=== PATIENT | female | born 1975 | race Caucasian/White ===

== ENCOUNTER 2017-07-26 02:08 | Emergency (ER) | payer SELFPAY ==
[~2017-07-26] VITALS: Ht 172.7 cm; Wt 54.0 kg
[2017-07-26 02:12] VITALS: BP 115/59; PULSE 91; RESP 16; TEMP 98.6; O2SAT 96
--- NOTE | 2017-07-26 02:42 | PD ---
HPI . overdose /intox Chief Complaint: OD/ Ingestion Time Seen by Provider: 02:26 Travel History International Travel<30 days: No Contact w/Intl Traveler<30days: No Traveled to known affect area: No History of Present Illness HPI pt was drink etoh all day and then took ambien and antidepressnat and made vague SI comments police tyson acted her and EVAC called [facility] Past Medical History Cancer: Yes (BREAST ) ?: Unknown Past Surgical History Section: Yes Mastectomy: Yes (GABRIELA. ) Social History Alcohol Use: Yes Tobacco Use: No Substance Use: No Allergies-Medications (Allergen,Severity, Reaction): Coded Allergies: No Known Allergies (Unverified , 07/26/17) Reported Meds & Prescriptions Reported Meds & Active Scripts Active Active Prescriptions or Reported Medications Unobtainable Review of Systems ROS Limitations: Intoxication Physical Exam Narrative GENERAL: somnolent but rousable SKIN: Warm and dry. HEAD: Atraumatic. Normocephalic. EYES: Pupils equal and round. No scleral icterus. No injection or drainage. ENT: No nasal bleeding or discharge. Mucous membranes pink and moist. NECK: Trachea midline. No JVD. CARDIOVASCULAR: Regular rate and rhythm. RESPIRATORY: No accessory muscle use. Clear to auscultation. Breath sounds equal bilaterally. GASTROINTESTINAL: Abdomen soft, non-tender, nondistended. Hepatic and splenic margins not palpable. MUSCULOSKELETAL: Extremities without clubbing, cyanosis, or edema. No obvious deformities. NEUROLOGICAL: Awake and alert. No obvious cranial nerve deficits. Motor grossly within normal limits. Five out of 5 muscle strength in the arms and legs. Normal speech. PSYCHIATRIC: sleepy but awakes on voice command Data Data Last Documented VS Vital Signs Date Time Temp Pulse Resp B/P (MAP) Pulse Ox O2 Delivery O2 Flow Rate FiO2 07/27/17 08:24 07/27/17 02:42 98.9 69 16 98 Room Air Orders Orders Complete Blood Count With Diff (07/26/17 02:43) Comprehensive Metabolic Panel (07/26/17 02:43) Drug Screen, Random Urine (07/26/17 02:43) Alcohol (Ethanol) (07/26/17 02:43) Salicylates (Aspirin) (07/26/17 02:43) Tylenol (Acetaminophen) (07/26/17 02:43) Psych Screen (07/26/17 04:22) Diet Regular Basic (07/26/17 Breakfast) Diet Regular Basic (07/26/17 Lunch) Diet Regular Basic (07/26/17 Dinner) Ed Discharge Order (07/27/17 08:16) Labs Laboratory Tests Test 07/26/17 02:50 07/26/17 18:52 White Blood Count 6.4 TH/MM3 Red Blood Count 3.69 MIL/MM3 Hemoglobin 11.6 GM/DL Hematocrit 34.4 % Mean Corpuscular Volume 93.1 FL Mean Corpuscular Hemoglobin 31.5 PG Mean Corpuscular Hemoglobin Concent 33.9 % Red Cell Distribution Width 13.9 % Platelet Count 210 TH/MM3 Mean Platelet Volume 9.5 FL Neutrophils (%) (Auto) 54.6 % Lymphocytes (%) (Auto) 32.6 % Monocytes (%) (Auto) 9.4 % Eosinophils (%) (Auto) 2.5 % Basophils (%) (Auto) 0.9 % Neutrophils # (Auto) 3.5 TH/MM3 Lymphocytes # (Auto) 2.1 TH/MM3 Monocytes # (Auto) 0.6 TH/MM3 Eosinophils # (Auto) 0.2 TH/MM3 Basophils # (Auto) 0.1 TH/MM3 CBC Comment DIFF FINAL Differential Comment Blood Urea Nitrogen 15 MG/DL Creatinine 0.66 MG/DL Random Glucose 91 MG/DL Total Protein 6.7 GM/DL Albumin 3.3 GM/DL Calcium Level 7.7 MG/DL Alkaline Phosphatase 79 U/L Aspartate Amino Transf (AST/SGOT) 21 U/L Alanine Aminotransferase (ALT/SGPT) 19 U/L Total Bilirubin LESS THAN 0.1 MG/DL Sodium Level 145 MEQ/L Potassium Level 3.7 MEQ/L Chloride Level 111 MEQ/L Carbon Dioxide Level 23.3 MEQ/L Anion Gap 11 MEQ/L Estimat Glomerular Filtration Rate 97 ML/MIN Salicylates Level LESS THAN 1.7 MG/DL Acetaminophen Level LESS THAN 2.0 MCG/ML Ethyl Alcohol Level 154 MG/DL Urine Opiates Screen NEG Urine Barbiturates Screen NEG Urine Amphetamines Screen NEG Urine Benzodiazepines Screen POS Urine Cocaine Screen NEG Urine Cannabinoids Screen NEG MDM Medical Decision Making Medical Screen Exam Complete: Yes Emergency Medical Condition: Yes Differential Diagnosis etoh and sleeping aid overdose accidental vs intentional vs manipulative OD vs passive SI vs intention Suicidal gesture vs attempt Narrative Course pt observed for over 6 hrs then medically cleared for psych evaluation of etoh overdose of ambien, to discuss motivations of overdosage and statements she made Diagnosis Primary Impression: Overdose Qualified Codes: T50.904A - Poisoning by unspecified drugs, medicaments and biological substances, undetermined, initial encounter Scripts Unable to Obtain Active Prescriptions or Reported Meds Franky Martinez MD Jul 26, 2017 02:41
[2017-07-26 03:04] LABS: AUTOMATED NEUTROPHIL # 3.5 TH/MM3 (1.8-7.7); BASOPHIL # 0.1 TH/MM3 (0-0.2); BASOPHIL % 0.9 % (0.0-2.0); EOSINOPHIL # 0.2 TH/MM3 (0-0.4); EOSINOPHIL % 2.5 % (0.0-4.0); HEMATOCRIT 34.4 % (35.0-46.0); HEMOGLOBIN 11.6 GM/DL (11.6-15.3); LYMPH % 32.6 % (9.0-44.0); LYMPHOCYTE # 2.1 TH/MM3 (1.0-4.8); MEAN CELL VOLUME 93.1 FL (80.0-100.0); MEAN CORPUSCULAR HEMOGLOBIN 31.5 PG (27.0-34.0); MEAN CORPUSCULAR HGB CONC 33.9 % (32.0-36.0); MEAN PLATELET VOLUME 9.5 FL (7.0-11.0); MONO % 9.4 % (0.0-8.0); MONOCYTE # 0.6 TH/MM3 (0-0.9); NEUT % 54.6 % (16.0-70.0); PLATELET COUNT 210 TH/MM3 (150-450); RED BLOOD COUNT 3.69 MIL/MM3 (4.00-5.30); RED CELL DISTRIBUTION WIDTH 13.9 % (11.6-17.2); WHITE BLOOD COUNT 6.4 TH/MM3 (4.0-11.0)
[2017-07-26 03:23] LABS: ALBUMIN 3.3 GM/DL (3.4-5.0); ALKALINE PHOSPHATASE 79 U/L (45-117); ALT (GPT) 19 U/L (10-53); AST (GOT) 21 U/L (15-37); BICARBONATE 23.3 MEQ/L (21.0-32.0); BLOOD UREA NITROGEN 15 MG/DL (7-18); CALCIUM 7.7 MG/DL (8.5-10.1); CHLORIDE 111 MEQ/L (98-107); CREATININE 0.66 MG/DL (0.50-1.00); GLOMERULAR FILTRATION RATE 97 ML/MIN (>89); GLUCOSE,RANDOM 91 MG/DL (74-106); SODIUM (NA) 145 MEQ/L (136-145); TOTAL BILIRUBIN ADULT LESS THAN 0.1 MG/DL (0.2-1.0); TOTAL PROTEIN 6.7 GM/DL (6.4-8.2)
[2017-07-26 03:24] LABS: ACETAMINOPHEN LESS THAN 2.0 MCG/ML (10.0-30.0)
[2017-07-26 08:14] VITALS: BP 103/56; PULSE 95; RESP 20; O2SAT 98
[2017-07-26 14:30] VITALS: BP 112/54; PULSE 96; RESP 18; TEMP 99.2; O2SAT 99
[2017-07-26 18:01] VITALS: BP 116/60; PULSE 97; RESP 18; O2SAT 99
[2017-07-26 22:30] VITALS: RESP 18
[2017-07-27 02:42] VITALS: BP 100/54; PULSE 69; RESP 16; TEMP 98.9; O2SAT 98
--- NOTE | 2017-07-27 08:17 | PD ---
Physical Exam Time Seen by Provider: 08:16 Narrative Please refer to previous providers documentation for details surrounding the patient's current visit. Data Data Last Documented VS Vital Signs Date Time Temp Pulse Resp B/P (MAP) Pulse Ox O2 Delivery O2 Flow Rate FiO2 07/27/17 02:42 98.9 69 16 100/54 (69) 98 Room Air Orders Orders Complete Blood Count With Diff (07/26/17 02:43) Comprehensive Metabolic Panel (07/26/17 02:43) Drug Screen, Random Urine (07/26/17 02:43) Alcohol (Ethanol) (07/26/17 02:43) Salicylates (Aspirin) (07/26/17 02:43) Tylenol (Acetaminophen) (07/26/17 02:43) Psych Screen (07/26/17 04:22) Diet Regular Basic (07/26/17 Breakfast) Diet Regular Basic (07/26/17 Lunch) Diet Regular Basic (07/26/17 Dinner) Diet Regular Basic (07/27/17 Breakfast) Ed Discharge Order (07/27/17 08:16) Labs Laboratory Tests Test 07/26/17 02:50 07/26/17 18:52 White Blood Count 6.4 TH/MM3 Red Blood Count 3.69 MIL/MM3 Hemoglobin 11.6 GM/DL Hematocrit 34.4 % Mean Corpuscular Volume 93.1 FL Mean Corpuscular Hemoglobin 31.5 PG Mean Corpuscular Hemoglobin Concent 33.9 % Red Cell Distribution Width 13.9 % Platelet Count 210 TH/MM3 Mean Platelet Volume 9.5 FL Neutrophils (%) (Auto) 54.6 % Lymphocytes (%) (Auto) 32.6 % Monocytes (%) (Auto) 9.4 % Eosinophils (%) (Auto) 2.5 % Basophils (%) (Auto) 0.9 % Neutrophils # (Auto) 3.5 TH/MM3 Lymphocytes # (Auto) 2.1 TH/MM3 Monocytes # (Auto) 0.6 TH/MM3 Eosinophils # (Auto) 0.2 TH/MM3 Basophils # (Auto) 0.1 TH/MM3 CBC Comment DIFF FINAL Differential Comment Blood Urea Nitrogen 15 MG/DL Creatinine 0.66 MG/DL Random Glucose 91 MG/DL Total Protein 6.7 GM/DL Albumin 3.3 GM/DL Calcium Level 7.7 MG/DL Alkaline Phosphatase 79 U/L Aspartate Amino Transf (AST/SGOT) 21 U/L Alanine Aminotransferase (ALT/SGPT) 19 U/L Total Bilirubin LESS THAN 0.1 MG/DL Sodium Level 145 MEQ/L Potassium Level 3.7 MEQ/L Chloride Level 111 MEQ/L Carbon Dioxide Level 23.3 MEQ/L Anion Gap 11 MEQ/L Estimat Glomerular Filtration Rate 97 ML/MIN Salicylates Level LESS THAN 1.7 MG/DL Acetaminophen Level LESS THAN 2.0 MCG/ML Ethyl Alcohol Level 154 MG/DL Urine Opiates Screen NEG Urine Barbiturates Screen NEG Urine Amphetamines Screen NEG Urine Benzodiazepines Screen POS Urine Cocaine Screen NEG Urine Cannabinoids Screen NEG MDM Medical Record Reviewed: Yes Supervised Visit with RALPH: No Narrative Course 42-year-old female presents emergency department under [place] act. She has been medically clear, evaluated by psychiatry and [place] act has been lifted. With no further medical needs, patient will be discharged at this time. Diagnosis Primary Impression: Adjustment disorder Qualified Codes: F43.25 - Adjustment disorder with mixed disturbance of emotions and conduct Scripts Unable to Obtain Active Prescriptions or Reported Meds Disposition: 01 DISCHARGE HOME Condition: Stable Deepali Ramirez Jul 27, 2017 08:17
--- NOTE | 2017-07-27 09:06 | PD.PSY.CON ---
Provisional Diagnosis Admission Date Date of consultation 07/27/2017 [place]. 1. Adjustment disorder with disturbance of emotions and conduct 2. Alcohol abuse with intoxication, intoxication now resolved [place] II. Deferred History of Present Illness Service Psychiatry Consult Requested By Emergency department Reason for Consult [place] act Primary Care Physician No Primary Care Physician HPI Ms. Edwards is a 42-year-old female with no reported psychiatric history who presents under a [place] act alleging ingestion and text messages to family threatening self-harm. Patient's alcohol level on presentation here was 154 and her urine toxicology was positive for benzodiazepines. Reviewing the electronic medical record, it appears this is patient's first visit to [facility]. Patient seen and examined. Chart reviewed. Case discussed with nurse in the J pod. No evidence of any suicidality or homicidality while the patient has been under observation in the J pod. On my examination this morning the patient is clinically sober. Patient reports that she had been dealing with several stressors including recent issues with breast cancer and ex- leaving her for a younger woman. She says that she had come up to [facility] from [place] to get away with some of her girlfriends. She says "I think the drinking made me do not the right thing." She admits to making a small ingestion and sending text messages but says "I might have just wanted attention." She denies that there was any suicidal intent in this ingestion. She describes herself as "situationally sad" but I can elicit no severe depressive or hypomanic/manic symptoms. She denies any suicidal or homicidal ideation, intent or plan and contracts for safety. She says that she wants to live for her daughter, her home and her friends. She denies any audiovisual hallucinations. I can elicit no paranoia, no ideas of reference, no thought manipulation, no other delusional material. There is no evident impairment in reality construction. The remainder of the psychiatric ROS is negative. No acute physical complaints. Patient is requesting discharge from the ER this morning. With the patient's permission, I have obtained collateral information from the patient's aunt Kiran Gutiérrez at [phone]. Lengthy discussion with patient's aunt. She notes that she received some of the text messages that were sent to family. She does suspect that the patient has alcohol use issues. She also believes that the patient is having difficulty coping with multiple psychosocial stressors. She says that one additional stressor not related by the patient was possible recent diagnosis with lung cancer. However, the patient's aunt does not have concerns about the patient being a risk of harm to self or others going forward and notes of presenting episode "she definitely wanted to be rescued." Patient's aunt would like to have the patient discharged into aunt's care today so that they may return to [facility] and seek further outpatient mental health counseling there. I have counseled patient's aunt regarding the [place] act and have recommended that she have the patient brought to the nearest ED should there be any evidence of psychiatric/behavioral decompensation. I spent approximately 17 minutes in telephone consultation with patient's aunt. Past psychiatric history: The patient denies a history of psychiatric diagnosis. She denies a history of inpatient or outpatient psychiatric treatment. She denies any history of suicide attempts. Family history: The patient denies a family history of serious mental illness or suicide. Chemical dependency history: The patient reports that she is not typically a heavy drinker but over imbibed in wine while she was with her girlfriends. She does endorse a history of blackouts but denies a history of DTs or seizures. No reported withdrawal symptoms presently. She also takes Xanax reportedly prescribed to her by her primary care doctor. She says that she takes this as prescribed, 1 mg at bedtime. Social history: The patient is from [place]. She reports that her ex- recently left her for a younger woman. She has a 6-year-old daughter and shares custody with ex-. She has a bachelor's degree and works as an HR professional. She denies any history. Denies any legal history. Denies any access to guns or firearms. Denies any history of trauma. She is a [employer]. Review of Systems Except as stated in HPI: all other systems reviewed are Neg Past Family Social History Coded Allergies: No Known Allergies (Unverified , 07/26/17) Past Medical History See electronic medical record Unable to Obtain Active Prescriptions or Reported Meds Includes Xanax at bedtime per patient report Patient's Strengths (min. 2) Attending to basic needs. Verbally fluent. Physical Exam Physical exam completed by ED provider. On my examination today, the patient appears to be in no acute physical distress. No motor abnormalities noted. No signs of intoxication or withdrawal noted besides mild resting hand tremor. Labs and vital signs reviewed: Vital Signs Vital Signs Date Time Temp Pulse Resp B/P (MAP) Pulse Ox O2 Delivery O2 Flow Rate FiO2 07/27/17 08:24 07/27/17 02:42 98.9 69 16 98 Room Air Lab Results Test 07/26/17 18:52 Urine Opiates Screen NEG Urine Barbiturates Screen NEG Urine Amphetamines Screen NEG Urine Benzodiazepines Screen POS Urine Cocaine Screen NEG Urine Cannabinoids Screen NEG Mental Status Examination Appearance: Appropriate Consciousness: Alert Orientation: x4 Motor Activity: Other (Motor exam as above) Speech: Unremarkable Language: Adequate Fund of Knowledge: Adequate Attention and Concentration: Adequate Memory: Unremarkable (Grossly intact on clinical exam) Mood: Other ("Situationally sad") Affect: Blunt Thought Process & Associations: Intact, Logical, Linear Thought Content: Appropriate Hallucination Type: None Delusion Type: None Suicidal Ideation: No Suicidal Plan: No Suicidal Intention: No Homicidal Ideation: No Homicidal Plan: No Homicidal Intention: No Mental Status Exam Remarks Insight and judgment are perhaps fair Assessment & Plan Problem List: (1) Adjustment disorder with mixed disturbance of emotions and conduct ICD Codes: F43.25 - Adjustment disorder with mixed disturbance of emotions and conduct (2) Alcohol abuse with intoxication, uncomplicated ICD Codes: F10.120 - Alcohol abuse with intoxication, uncomplicated Assessment & Plan 42-year-old female with psychiatric history as detailed above who presents under [place] act by law enforcement. On my examination today, the patient is clinically sober. She denies any suicidal or homicidal ideation, intent or plan at this time. She contracts for safety. Patient does describe some mild dysphoria related to psychosocial stressors, but there is no evidence of severely unstable mental illness as defined under the [place] act in this patient at this time. She appears to be attending to basic needs. I have obtained collateral information from the patient's aunt who would like to assume care of the patient and go to [facility] to seek further ambulatory treatment for patient's chemical dependency and mental health issues. Synthesizing this information and based on the available evidence, I epidemiology investigator that the patient does not presently meet the [place] act criteria. I have lifted the [place] act. I have counseled the patient to seek outpatient mental health and chemical dependency treatment. I have counseled the patient regarding warning signs for need to return to the psychiatric emergency room as part of a general safety plan. Patient is otherwise psychiatrically clear for discharge and aunt's care from the ED. Thank you very much for this consultation. Jerry Dudley MD Jul 27, 2017 09:06
== END 2017-07-27 08:46 | disposition home or self-care (01) ==
LOC: NEPE 02:08 → NEPJ 07-27 08:46
DX: T42.6X1A Poisoning by other antiepileptic and sedative-hypnotic drugs, accidental (unintentional), initial encounter (principal); F43.25 Adjustment disorder with mixed disturbance of emotions and conduct; F10.120 Alcohol abuse with intoxication, uncomplicated
CPT/HCPCS: 80053; 80307; 85025; 99283